=== PATIENT | female | born 1955 | race Caucasian/White ===

== ENCOUNTER → 2018-05-02 12:29 | Outpatient (REF) | payer OTHER, SELFPAY ==
[2018-05-02 19:31] LABS: ALT 37 U/L (12-78); AST 26 U/L (15-37); Albumin 3.8 g/dL (3.4-5.0); Alkaline Phosphatase 84 U/L (46-116); BUN 15 mg/dL (7-18); Bilirubin, Total 0.2 mg/dL (0.2-1.0); CREATININE 0.87 mg/dL (0.55-1.02); Calcium 8.6 mg/dL (8.5-10.1); Chloride 106 mmol/L (98-107); Cholesterol 193 mg/dL (50-200); Glucose 125 mg/dL (70-100); HDL Cholesterol 48 mg/dL (40-60); LDL CHOLESTEROL 131 mg/dL (<100); Potassium 4.3 mmol/L (3.5-5.1); Sodium 141 mmol/L (136-145); Total Protein 6.8 g/dL (6.4-8.2); Triglyceride 94 mg/dL (30-150)
== END ==
LOC: NCHCN 12:29
PROVIDERS: PCP Nurse Practitioner; Visit Provider Nurse Practitioner
DX: E78.5 Hyperlipidemia, unspecified (principal); E66.9 Obesity, unspecified
CPT/HCPCS: 80053; 80061; 83721

== ENCOUNTER 2018-08-31 08:31 | Emergency (ER) | payer OTHER, SELFPAY ==
[2018-08-31 08:41] VITALS: BP 149/74; PULSE 95; RESP 16; TEMP 37; O2SAT 94
--- NOTE | 2018-08-31 08:55 | W.ED.GENAD ---
Discharge Plan Disposition Patient Disposition: HOME Condition: Improving Discharge Details Chief Complaint: RashLesion Clinical Impression: Cellulitis of finger of left hand Primary Care Provider: Chikis Padron ED Provider: Jonathan Martin Home Meds and New Rx's Prescriptions: New cephalexin 500 mg capsule 500 mg PO TID 7 Days Qty: 21 RF: 0 Continued multivitamin [Daily Value] 1 EACH tablet 1 ea PO DAILY RF: 0 aspirin [Aspirin Low-Strength] 81 MG tablet,chewable 81 mg PO DAILY RF: 0 omeprazole 20 MG capsule,delayed release(DR/EC) 20 mg PO DAILY@0730 PRNQty: 30 RF: 0 ascorbic acid (vitamin C) [Vitamin C] 500 MG tablet 500 mg PO DAILY RF: 0 cholecalciferol (vitamin D3) [Vitamin D3] 2,000 UNIT capsule 2,000 unit PO PRN RF: 0 vitamin E (dl, acetate) 400 UNIT capsule 400 unit PO DAILY RF: 0 vitamin B complex 1 EACH tablet 1 tab PO QAM RF: 0 metoprolol tartrate 25 mg Tablet 25 mg PO DAILY RF: 0 Discharge Instructions Instructions: Cellulitis (ED) Additional Instructions: Continue your regular medications. Please take Keflex as prescribed for 1 week. Follow-up in clinic if not improving in 5 days time. Elevate hand above level of the heart to reduce pain and swelling. May continue Tylenol and ibuprofen as needed. May use warm soaks to speed the healing as well Medical Decision Making 62-year-old female with left ring finger infection and swelling due to constriction of her friendship ring. The ring was removed. The area does not show evidence of fluctuance and I do not feel incision is and drainage is indicated. I will place her on a course of Keflex. She will continue to raise the hand to decrease the swelling, may use warm soaks at home, [id number] medicines as needed. She will return for worsening, otherwise follow-up with primary care. She has plans to pursue increased exercise and weight loss. HPI General Mode of arrival: ambulatory. Date/Time Provider Initiated Documentation: 08/31/18 08:43. Limitations to Documentation: no limitations. Information obtained by: patient. History of Present Illness 62 year old F presents to the emergency department with the chief complaint of Left ring finger swelling and bruising dorsal wound over 3 days time. , described as moderate, Quality is described as aching, and is localized to the left and upper extremity. Patient reports no radiation. Patient started experiencing this day(s) and it has been constant. No relieving factors improve symptom(s), No exacerbating factors reported . Patient notes rash. Related Data Home Medications Medication Instructions Recorded Confirmed ascorbic acid (vitamin C) [Vitamin 500 mg PO DAILY 09/16/13 08/31/18 C] cholecalciferol (vitamin D3) 2,000 unit PO PRN 09/16/13 08/31/18 [Vitamin D3] vitamin E (dl, acetate) 400 unit PO DAILY 09/16/13 08/31/18 vitamin B complex 1 tab PO QAM 12/05/14 08/31/18 multivitamin [Daily Value] 1 ea PO DAILY 09/15/15 08/31/18 aspirin [Aspirin Low-Strength] 81 mg PO DAILY tab-cap 10/06/15 08/31/18 omeprazole 20 mg PO DAILY@0730 PRN #30 tab 10/11/16 08/31/18 cephalexin 500 mg PO TID 7 Days #21 cap 08/31/18 metoprolol tartrate 25 mg PO DAILY 08/31/18 08/31/18 Previous Rx's Medication Instructions Recorded cephalexin 500 mg PO TID 7 Days #21 cap 08/31/18 Allergies Allergy/AdvReac Type Severity Reaction Status Date / Time Latex, Natural Rubber AdvReac Intermediate flu-like Unverified 08/31/18 08:44 symptoms General Stated Complaint: RashLesion KENDALL: 4 Review of Systems Review of Systems 6 systems reviewed and otherwise neg [facility] Medical History Back injury Surgical History Cholecystectomy Tubal Ligation, Laparoscopic Family History Mother Heart murmur Myocardial infarction Father Prostate cancer Maternal Aunt Breast cancer Maternal Cousin Breast cancer Sister Heart murmur Social History Smoking/Tobacco Use Status: Former Tobacco Use Exam Narrative Exam Narrative: GEN: awake, alert, oriented 3. Pleasant, well groomed, interactive. HEAD: Normocephalic, atraumatic ENT: Mucous membranes moist, oropharynx unremarkable, External ear exam unremarkable EYES: PERRL, EOMI NECK: Full ROM, no MARIZOL, no menigismus CHEST/RESP: Nontender, clear to auscultation bilateral, no wheeze/rhonchi/rales CARDIOVASCULAR: RRR, no murmur, rub corina. 2+ Rad pulse bilateral EXT: Full ROM, left ring finger is edematous with a scheduled band proximal in place with constriction. Overlying the middle phalanx on the dorsal aspect there is a one by one area of mild erythema with tenderness. No fluctuance. Capillary refill less than 2 seconds Neuro: Grossly normal neurologic exam, conversant, interactive. Psych: Speech fluent, thoughts congruent, affect normal Course Vital Signs Temperature 37 C 08/31/18 08:41 Pulse 95 H 08/31/18 08:41 Respiratory Rate 16 08/31/18 08:41 Blood Pressure 149/74 H 08/31/18 08:41 Pulse Oximetry 94 L 08/31/18 08:41 Temperature 37 C 08/31/18 08:41 Temperature Source Skin 08/31/18 08:41 Pulse 95 H 08/31/18 08:41 Respiratory Rate 16 08/31/18 08:41 Respiratory Effort Non-Labored 08/31/18 08:41 Blood Pressure 149/74 H 08/31/18 08:41 Blood Pressure Position Sitting 08/31/18 08:41 Pulse Oximetry 94 L 08/31/18 08:41 Oxygen Delivery Method Room Air 08/31/18 08:41 Oxygen Flow Rate 0 08/31/18 08:41 Pain Level 9 08/31/18 08:41
--- NOTE | 2018-08-31 08:58 | ED.GENADUL_ITS ---
Discharge Plan Disposition Patient Disposition: HOME Condition: Improving Discharge Details Chief Complaint: RashLesion Clinical Impression: Cellulitis of finger of left hand Primary Care Provider: Chikis Padron ED Provider: Jonathan Martin Home Meds and New Rx's Prescriptions: New cephalexin 500 mg capsule 500 mg PO TID 7 Days Qty: 21 RF: 0 Continued multivitamin [Daily Value] 1 EACH tablet 1 ea PO DAILY RF: 0 aspirin [Aspirin Low-Strength] 81 MG tablet,chewable 81 mg PO DAILY RF: 0 omeprazole 20 MG capsule,delayed release(DR/EC) 20 mg PO DAILY@0730 PRNQty: 30 RF: 0 ascorbic acid (vitamin C) [Vitamin C] 500 MG tablet 500 mg PO DAILY RF: 0 cholecalciferol (vitamin D3) [Vitamin D3] 2,000 UNIT capsule 2,000 unit PO PRN RF: 0 vitamin E (dl, acetate) 400 UNIT capsule 400 unit PO DAILY RF: 0 vitamin B complex 1 EACH tablet 1 tab PO QAM RF: 0 metoprolol tartrate 25 mg Tablet 25 mg PO DAILY RF: 0 Discharge Instructions Instructions: Cellulitis (ED) Additional Instructions: Continue your regular medications. Please take Keflex as prescribed for 1 week. Follow-up in clinic if not improving in 5 days time. Elevate hand above level of the heart to reduce pain and swelling. May continue Tylenol and ibuprofen as needed. May use warm soaks to speed the healing as well Medical Decision Making 62-year-old female with left ring finger infection and swelling due to constri ction of her friendship ring. The ring was removed. The area does not show evidence of fluctuance and I do not feel incision is and drainage is indicated. I will place her on a course of Keflex. She will continue to raise the hand to decrease the swelling, may use warm soaks at home, [id number] medicines as needed. She will return for worsening, otherwise follow-up with primary care. She has plans to pursue increased exercise and weight loss. HPI General Mode of arrival: ambulatory . Date/Time Provider Initiated Documentation: 08/31/18 08:43 . Limitations to Documentation: no limitations . Information obtained by: patient . History of Present Illness 62 year old F presents to the emergency department with the chief complaint of Left ring finger swelling and bruising dorsal wound over 3 days time. , described as moderate, Quality is described as aching, and is localized to the left and upper extremity. Patient reports no radiation. Patient started experiencing this day(s) and it has been constant. No relieving factors improve symptom(s), No exacerbating factors reported . Patient notes rash. Related Data Home Medications Medication Instructions Recorded Confirmed ascorbic acid (vitamin C) [Vitamin 500 mg PO DAILY 09/16/13 08/31/18 C] cholecalciferol (vitamin D3) 2,000 unit PO PRN 09/16/13 08/31/18 [Vitamin D3] vitamin E (dl, acetate) 400 unit PO DAILY 09/16/13 08/31/18 vitamin B complex 1 tab PO QAM 12/05/14 08/31/18 multivitamin [Daily Value] 1 ea PO DAILY 09/15/15 08/31/18 aspirin [Aspirin Low-Strength] 81 mg PO DAILY tab-cap 10/06/15 08/31/18 omeprazole 20 mg PO DAILY@0730 PRN #30 tab 10/11/16 08/31/18 cephalexin 500 mg PO TID 7 Days #21 cap 08/31/18 metoprolol tartrate 25 mg PO DAILY 08/31/18 08/31/18 Previous Rx's Medication Instructions Recorded cephalexin 500 mg PO TID 7 Days #21 cap 08/31/18 Allergies Allergy/AdvReac Type Severity Reaction Status Date / Time Latex, Natural Rubber AdvReac Intermediate flu-like Unverified 08/31/18 08:44 symptoms General Stated Complaint: RashLesion KENDALL: 4 Review of Systems Review of Systems 6 systems reviewed and otherwise neg [facility] Medical History Back injury Surgical History Cholecystectomy Tubal Ligation, Laparoscopic Family History Mother Heart murmur Myocardial infarction Father Prostate cancer Maternal Aunt Breast cancer Maternal Cousin Breast cancer Sister Heart murmur Social History Smoking/Tobacco Use Status: Former Tobacco Use Exam Narrative Exam Narrative: GEN: awake, alert, oriented 3. Pleasant, well groomed, interactive. HEAD: Normocephalic, atraumatic ENT: Mucous membranes moist, oropharynx unremarkable, External ear exam unremarkable EYES: PERRL, EOMI NECK: Full ROM, no MARIZOL, no menigismus CHEST/RESP: Nontender, clear to auscultation bilateral, no wheeze/rhonchi/rales CARDIOVASCULAR: RRR, no murmur, rub corina. 2+ Rad pulse bilateral EXT: Full ROM, left ring finger is edematous with a scheduled band proximal in place with constriction. Overlying the middle phalanx on the dorsal aspect there is a one by one area of mild erythema with tenderness. No fluctuance. Capillary refill less than 2 seconds Neuro: Grossly normal neurologic exam, conversant, interactive. Psych: Speech fluent, thoughts congruent, affect normal Course Vital Signs Temperature 37 C 08/31/18 08:41 Pulse 95 H 08/31/18 08:41 Respiratory Rate 16 08/31/18 08:41 Blood Pressure 149/74 H 08/31/18 08:41 Pulse Oximetry 94 L 08/31/18 08:41 Temperature 37 C 08/31/18 08:41 Temperature Source Skin 08/31/18 08:41 Pulse 95 H 08/31/18 08:41 Respiratory Rate 16 08/31/18 08:41 Respiratory Effort Non-Labored 08/31/18 08:41 Blood Pressure 149/74 H 08/31/18 08:41 Blood Pressure Position Sitting 08/31/18 08:41 Pulse Oximetry 94 L 08/31/18 08:41 Oxygen Delivery Method Room Air 08/31/18 08:41 Oxygen Flow Rate 0 08/31/18 08:41 Pain Level 9 08/31/18 08:41
--- NOTE | 2018-08-31 09:01 | NUR.NOTE ---
Ring removed with ring cutter. no adverse problems.Nursing Note:
[2018-08-31] MEDS: Cephalexin 500 MG CAP PO (09:09)
== END 2018-08-31 09:22 | disposition home or self-care (01) ==
PROVIDERS: Emergency Provider Emergency Medicine; PCP Nurse Practitioner
DX: L03.012 Cellulitis of left finger (principal)
CPT/HCPCS: 99283

== ENCOUNTER 2018-09-03 19:07 | Emergency (ER) | payer OTHER, SELFPAY ==
[2018-09-03 19:11] VITALS: BP 148/85; PULSE 110; RESP 18; TEMP 36.8; O2SAT 96
--- NOTE | 2018-09-03 20:10 | W.ED.GENAD ---
Discharge Plan Disposition Patient Disposition: HOME Condition: Stable Discharge Details Chief Complaint: Cellulitis Clinical Impression: Cellulitis of left ring finger Primary Care Provider: Chikis Padron ED Provider: Dwayne Evans Home Meds and New Rx's Prescriptions: New sulfamethoxazole-trimethoprim [Bactrim DS] 800-160 mg tablet 2 tab PO BID 5 Days Qty: 20 RF: 0 Continued multivitamin [Daily Value] 1 EACH tablet 1 ea PO DAILY RF: 0 aspirin [Aspirin Low-Strength] 81 MG tablet,chewable 81 mg PO DAILY RF: 0 omeprazole 20 MG capsule,delayed release(DR/EC) 20 mg PO DAILY@0730 PRNQty: 30 RF: 0 ascorbic acid (vitamin C) [Vitamin C] 500 MG tablet 500 mg PO DAILY RF: 0 cholecalciferol (vitamin D3) [Vitamin D3] 2,000 UNIT capsule 2,000 unit PO PRN RF: 0 vitamin E (dl, acetate) 400 UNIT capsule 400 unit PO DAILY RF: 0 vitamin B complex 1 EACH tablet 1 tab PO QAM RF: 0 metoprolol tartrate 25 mg Tablet 25 mg PO DAILY RF: 0 cephalexin 500 mg capsule 500 mg PO TID 7 Days Qty: 21 RF: 0 Discharge Instructions Instructions: Cellulitis (ED) Additional Instructions: soak the finger a few times a day have the finger reevaluated by your primary care provider in a week if you have severe worsening pain, fevers, or redness spreading up the hand return to the emergency department Medical Decision Making 62 yo female comes in with continued swelling and redness to left middle finger. She was seen on 08/31 and was placed on cephalexin and despite this has worsening swelling and drainage so came here. She has 2x3cm area of erythema over the posterior left ring finger primarily around the pip joint. She has full rom of the joint and no pain over flexor tendons so doubt flexor tenosynovitis . Suspect abscess, will anesthetize the finger and try and drain as there is drainage and fluctuance in the center of erythema I injected with 6cc of lidocaine 1%, 3cc on each side of the base of the left ring finger and then incsied with an 11 blade. NO significant purulence returned as it drained earlier. I opened it up with giuseppe clamps. I did have Dr. garcia evaluate it at bedside and he agrees with adding bactrim, soaking and f/u with pcp and return here if worsening Differential Diagnosis abscess, cellulitis, septic joint HPI General Mode of arrival: ambulatory. Date/Time Provider Initiated Documentation: 09/03/18 19:20. Limitations to Documentation: no limitations. Information obtained by: patient. History of Present Illness 62 year old F presents to the emergency department with the chief complaint of left ring finger redness/swelling, described as moderate, Quality is described as burning, and is localized to the left and upper extremity. Patient reports no radiation. Patient started experiencing this day(s) (4) and it has been constant. No relieving factors improve symptom(s), Related Data Home Medications Medication Instructions Recorded Confirmed ascorbic acid (vitamin C) [Vitamin 500 mg PO DAILY 09/16/13 09/03/18 C] cholecalciferol (vitamin D3) 2,000 unit PO PRN 09/16/13 09/03/18 [Vitamin D3] vitamin E (dl, acetate) 400 unit PO DAILY 09/16/13 09/03/18 vitamin B complex 1 tab PO QAM 12/05/14 09/03/18 multivitamin [Daily Value] 1 ea PO DAILY 09/15/15 09/03/18 aspirin [Aspirin Low-Strength] 81 mg PO DAILY tab-cap 10/06/15 09/03/18 omeprazole 20 mg PO DAILY@0730 PRN #30 tab 10/11/16 09/03/18 cephalexin 500 mg PO TID 7 Days #21 cap 08/31/18 09/03/18 metoprolol tartrate 25 mg PO DAILY 08/31/18 09/03/18 sulfamethoxazole-trimethoprim 2 tab PO BID 5 Days #20 tab 09/03/18 [Bactrim DS] Previous Rx's Medication Instructions Recorded cephalexin 500 mg PO TID 7 Days #21 cap 08/31/18 sulfamethoxazole-trimethoprim 2 tab PO BID 5 Days #20 tab 09/03/18 [Bactrim DS] Allergies Allergy/AdvReac Type Severity Reaction Status Date / Time Latex, Natural Rubber AdvReac Intermediate flu-like Unverified 08/31/18 08:44 symptoms General Stated Complaint: Cellulitis KENDALL: 3 Review of Systems Review of Systems All systems reviewed & are unremarkable except as noted in HPI and below Constitutional Denies weakness Cardiovascular Denies chest pain and Denies dyspnea Respiratory Denies dyspnea Gastrointestinal Denies vomiting Neurologic Denies weakness [facility] Medical History Back injury Surgical History Cholecystectomy Tubal Ligation, Laparoscopic Social History Smoking/Tobacco Use Status: Former Tobacco Use Exam Const General: no acute distress Orientation: alert HENMT Head: normal to inspection Ears: external ears normal General nose exam: external nose normal Mouth: moist mucous membranes Eyes General: appearance normal, both eyes and all related structures Neck Neck: normal visual inspection Resp Effort & Inspection: normal respiratory effort and able to speak in complete sentences Cardio Rate: regular rate Skin General skin exam: no rashes or lesions noted Neuro General: alert and oriented x3 Extrem General: full ROM and normal capillary refill Psych Mental Status: mental status grossly normal Course Vital Signs Temperature 36.8 C 09/03/18 19:11 Pulse 110 H 09/03/18 19:11 Respiratory Rate 18 09/03/18 19:11 Blood Pressure 148/85 H 09/03/18 19:11 Pulse Oximetry 96 09/03/18 19:11 Temperature 36.8 C 09/03/18 19:11 Temperature Source Skin 09/03/18 19:11 Pulse 110 H 09/03/18 19:11 Respiratory Rate 18 09/03/18 19:11 Respiratory Effort 09/03/18 19:16 Blood Pressure 148/85 H 09/03/18 19:11 Blood Pressure Position Sitting 09/03/18 19:11 Pulse Oximetry 96 09/03/18 19:11 Oxygen Delivery Method Room Air 09/03/18 19:11 Oxygen Flow Rate 0 09/03/18 19:11 Pain Level 10 09/03/18 19:11 Procedures Abscess I/D Site: Upper Extremity and Hand Side (if applicable): Left Local Anesthetic: Lidocaine 1% Amount of anesthesia used (mL): 6 Technique: Incised with #11 Blade Amount of fluid expressed (mL): 1 (blood with small amount of pus) Irrigation: Yes Packing used?: None
[2018-09-03] MEDS: Sulfameth/Trimeth DS TAB 2 TAB PO (20:28)
[2018-09-03 21:14] VITALS: BP 148/85; PULSE 110; RESP 18; TEMP 36.8; O2SAT 96
== END 2018-09-03 21:15 | disposition home or self-care (01) ==
PROVIDERS: Emergency Provider Emergency Medicine; PCP Nurse Practitioner
DX: L03.012 Cellulitis of left finger (principal)
CPT/HCPCS: 10060

== ENCOUNTER 2018-11-14 16:00 | Outpatient (CLI) | payer OTHER, SELFPAY ==
--- NOTE | 2018-11-14 15:30 | DI.RAD_ITS ---
SYMPTOMS/DIAGNOSIS: ACUTE UPPER RESPIRATORY INFECTION, COUGH, J06.9, R05 CHEST X-RAY, PA AND LATERAL: Comparison is 07/15/10. The heart is normal in size. The lungs are clear. The mediastinal structures and pleura appear intact. IMPRESSION: Normal chest.
== END 2018-11-14 16:20 ==
PROVIDERS: PCP Nurse Practitioner; Visit Provider Nurse Practitioner
DX: J06.9 Acute upper respiratory infection, unspecified (principal); R05 Cough
CPT/HCPCS: 71046

== ENCOUNTER 2018-12-15 07:21 | Outpatient (CLI) | payer OTHER, SELFPAY ==
[2018-12-15 10:18] LABS: Hemoglobin A1C 6.7 % (4.5-6.2)
[2018-12-15 12:25] LABS: ALT 44 U/L (12-78); AST 26 U/L (15-37); Albumin 3.6 g/dL (3.4-5.0); Alkaline Phosphatase 75 U/L (46-116); Anion Gap 11.3 mmol/L (3-11); BUN 20 mg/dL (7-18); Bilirubin, Total 0.3 mg/dL (0.2-1.0); CO2 26.7 mmol/L (21.0-32.0); CREATININE 0.73 mg/dL (0.55-1.02); Calcium 8.8 mg/dL (8.5-10.1); Chloride 104 mmol/L (98-107); Cholesterol 179 mg/dL (50-200); Glucose 101 mg/dL (70-100); HDL Cholesterol 40 mg/dL (40-60); LDL CHOLESTEROL 123 mg/dL (<100); Potassium 4.3 mmol/L (3.5-5.1); Sodium 142 mmol/L (136-145); Triglyceride 89 mg/dL (30-150)
== END 2018-12-15 07:41 ==
PROVIDERS: PCP Nurse Practitioner; Visit Provider Nurse Practitioner
DX: E78.5 Hyperlipidemia, unspecified (principal); R03.0 Elevated blood-pressure reading, without diagnosis of hypertension; R73.9 Hyperglycemia, unspecified
CPT/HCPCS: 36415; 80053; 80061; 83721; 83036

== ENCOUNTER 2020-07-13 01:56 | Outpatient (CLI) | payer OTHER, SELFPAY ==
[2020-07-13 07:56] LABS: Hemoglobin A1C 6.6 % (<5.7)
[2020-07-13 08:02] LABS: ALT 30 U/L (14-59); AST 21 U/L (15-37); Albumin 3.7 g/dL (3.4-5.0); Alkaline Phosphatase 70 U/L (46-116); Anion Gap 9.5 mmol/L (3-11); BUN 18 mg/dL (7-18); Bilirubin, Total 0.3 mg/dL (0.2-1.0); CO2 26.5 mmol/L (21.0-32.0); CREATININE 0.85 mg/dL (0.55-1.02); Calcium 8.9 mg/dL (8.5-10.1); Calculated LDL 111 mg/dL (<100); Chloride 105 mmol/L (98-107); Cholesterol 178 mg/dL (<200); Glucose 115 mg/dL (74-106); HDL Cholesterol 47 mg/dL (40-60); Potassium 4.1 mmol/L (3.5-5.1); Sodium 141 mmol/L (136-145); Total Protein 7.8 g/dL (6.4-8.2); Triglyceride 104 mg/dL (<150)
== END 2020-07-13 02:16 ==
PROVIDERS: PCP Nurse Practitioner; Visit Provider Nurse Practitioner
DX: E11.9 Type 2 diabetes mellitus without complications (principal)
CPT/HCPCS: 36415; 80053; 80061; 83036

== ENCOUNTER 2020-08-12 11:58 | Outpatient (CLI) | payer OTHER, SELFPAY ==
--- NOTE | 2020-08-12 18:45 | DI.RAD_ITS ---
EXAM: XR KNEE RT 3V AP,LAT,BLAS CLINICAL HISTORY: RT KNEE PAIN,[id number]. TECHNIQUE: 2D digital imaging was performed. COMPARISON: No exams were available for comparison FINDINGS: BONES: No acute fracture is present. No bony destructive lesion is seen. JOINTS: The knee is normally aligned. No joint effusion is seen. Mild periarticular spurring. SOFT TISSUE: Normal. IMPRESSION: Mild degenerative changes. DATA REPOSITORY: RADIATION DOSE DELIVERED:
== END 2020-08-12 12:18 ==
PROVIDERS: PCP Nurse Practitioner; Visit Provider Nurse Practitioner Family
DX: M17.11 Unilateral primary osteoarthritis, right knee (principal)
CPT/HCPCS: 73562

== ENCOUNTER 2020-09-24 07:49 | Emergency (ER) | payer OTHER, SELFPAY ==
[2020-09-24 07:56] VITALS: BP 173/87; PULSE 117; RESP 18; TEMP 36.6; O2SAT 96
--- NOTE | 2020-09-24 08:18 | W.ED.GENAD ---
Discharge Plan Disposition Patient Disposition: HOME Condition: Good Discharge Details Clinical Impression: Encounter for medical assessment, Foreign body sensation in ear canal Primary Care Provider: Chikis Padron ED Provider: Mihai Gautam Home Meds and New Rx's Prescriptions: Continued multivitamin [Daily Value] 1 EACH tablet 1 ea PO DAILY RF: 0 aspirin [Aspirin Low-Strength] 81 MG tablet,chewable 81 mg PO DAILY RF: 0 omeprazole 20 MG capsule,delayed release(DR/EC) 20 mg PO DAILY@0730 PRNQty: 30 RF: 0 ascorbic acid (vitamin C) [Vitamin C] 500 MG tablet 500 mg PO DAILY RF: 0 cholecalciferol (vitamin D3) [Vitamin D3] 2,000 UNIT capsule 2,000 unit PO PRN RF: 0 vitamin E (dl, acetate) 400 UNIT capsule 400 unit PO DAILY RF: 0 vitamin B complex 1 EACH tablet 1 tab PO QAM RF: 0 metoprolol tartrate 25 mg Tablet 25 mg PO DAILY RF: 0 Discharge Instructions Additional Instructions: At this time on the x-ray and on exam there is no evidence of foreign body. The initial sensation have been secondary to some of the wax that was still present in the canal. But at this time there does not appear to be any evidence of retained Bluetooth device. If you notice any worsening of your symptoms, or any new symptoms such as vomiting, diarrhea, fever, chills, shortness of breath, chest pain, numbness, weakness, or fainting , please return immediately to the emergency department for reevaluation. Please follow up with your primary care provider as soon as possible for reassessment and reevaluation. As always, it was a pleasure participating in your medical care today. Referrals: Chikis Padron [Primary Care Provider] - Medical Decision Making 64-year-old female who presents today for foreign body audio in the left ear. Patient states that she was wearing her Bluetooth, and when she took it out she still hear echoing in speech in her left ear even though the Bluetooth without. She denies any pain, she denies any headache, visual changes, changes in sense or smells, any numbness, tingling, or weakness. No history of brain cancer. No evidence of trauma. She is notably concerned about this current symptoms. Symptoms began just a few moments ago while she was walking into work here. No other complaints at this time. No other modifying factors. Exam demonstrates no evidence of foreign body in the left ear, no tympanic membrane perforation, no other abnormality. Patient is insistent that she was able to get this down, and is requesting x-ray to rule out foreign body. Will get x-ray at her request which is reasonable given her level of concern. We will washout the ear as well, to remove any excess cerumen. No other complaints at this time. 9 AM X-ray shows no evidence of radiopaque foreign body, ear was irrigated, all cerumen was removed, repeat evaluation continues to demonstrate no signs of foreign body thankfully. Patient feels well, symptoms have resolved. Unknown cause for her initial auditory symptomatology, symptoms appearing consistent with tumor, mass or other concerning etiology. Will discharge home, recommend close follow-up with PCP. Discussed red flags which to return. I have extensively reviewed the treatment plan and discharge instructions with the patient. I have addressed all patient concerns at this time. The patient was made aware of what symptoms to monitor for that would warrant a return to the emergency department. Discussed the plan with the patient, they demonstrate verbal understanding and agreement with our assessment and plan at this time. Radiology report: [No radiopaque foreign bodies are identified. HPI General Date/Time Provider Initiated Documentation: 09/24/20 08:07. HPI Narrative: 64-year-old female who presents today for foreign body audio in the left ear. Patient states that she was wearing her Bluetooth, and when she took it out she still hear echoing in speech in her left ear even though the Bluetooth without. She denies any pain, she denies any headache, visual changes, changes in sense or smells, any numbness, tingling, or weakness. No history of brain cancer. No evidence of trauma. She is notably concerned about this current symptoms. Symptoms began just a few moments ago while she was walking into work here. No other complaints at this time. No other modifying factors. Related Data Home Medications Medication Instructions Recorded Confirmed ascorbic acid (vitamin C) [Vitamin 500 mg PO DAILY 09/16/13 09/16/20 C] cholecalciferol (vitamin D3) 2,000 unit PO PRN 09/16/13 09/16/20 [Vitamin D3] vitamin E (dl, acetate) 400 unit PO DAILY 09/16/13 09/16/20 vitamin B complex 1 tab PO QAM 12/05/14 09/16/20 multivitamin [Daily Value] 1 ea PO DAILY 09/15/15 09/16/20 aspirin [Aspirin Low-Strength] 81 mg PO DAILY tab-cap 10/06/15 09/16/20 omeprazole 20 mg PO DAILY@0730 PRN #30 tab 10/11/16 09/16/20 metoprolol tartrate 25 mg PO DAILY 08/31/18 09/16/20 Allergies Allergy/AdvReac Type Severity Reaction Status Date / Time Latex, Natural Rubber AdvReac Intermediate flu-like Unverified 09/16/20 09:59 symptoms General Stated Complaint: EarProblem KENDALL: 4 Review of Systems All systems reviewed & are unremarkable except as noted in HPI and below PFSH Medical History (Updated 09/24/20 @ 08:22 by Mihai Gautam DO) Back injury Surgical History Cholecystectomy Tubal Ligation, Laparoscopic Family History Mother Heart murmur Myocardial infarction 67 Father Prostate cancer Maternal Aunt Breast cancer Maternal Cousin Breast cancer Sister Heart murmur Social History Smoking/Tobacco Use Status: Former Tobacco Use Smoking risk assessment performed?: Yes Alcohol Intake: current Alcohol Intake frequency: holidays/special occasions only Drug use: Never Substance use type: does not use Do you feel safe in your relationship?: Yes Exam Narrative Exam Narrative: 1.Const: Well-nourished, Well-developed, appearing stated age 2.Eyes: PERRL, no conjunctival injection, and symmetrical lids. 3.ENT: Atraumatic external nose and ears. Moist MM. Neck: Symmetric, trachea midline, No thyromegaly. Left ear demonstrates a small amount of cerumen, no evidence of tympanic membrane perforation, no evidence of foreign body. No tenderness. 4.CVS: +S1/S2, No murmurs or gallops. Peripheral pulses 2+ and equal in all extremities. Brisk capillary refill in all extremities. 5.RESP: Unlabored respiratory effort. Clear to auscultation bilaterally. No wheezes rales or rhonchi 6.GI: Soft, Nontender/Nondistended, No hepatosplenomegaly. No guarding or rebound. 7.MSK: Normocephalic/Atraumatic, Extremities w/o deformity or ttp No cyanosis or clubbing, Normal movement of all extremities 8.Skin: Warm, Dry. No rashes or lesions. 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 Sensation grossly intact, no focal neurologic deficits. 10.Psych: (AAO) x3. Appropriate mood and affect Course Vital Signs Vital signs: Vital Signs Temperature 36.6 C 09/24/20 07:56 Pulse 117 H 09/24/20 07:56 Respiratory Rate 18 09/24/20 07:56 Blood Pressure 173/87 H 09/24/20 07:56 Pulse Oximetry 96 09/24/20 07:56 Temperature 36.6 C 09/24/20 07:56 Temperature Source Temporal Artery Scan 09/24/20 07:56 Pulse 117 H 09/24/20 07:56 Respiratory Rate 18 09/24/20 07:56 Respiratory Effort Non-Labored 09/24/20 08:09 Blood Pressure 173/87 H 09/24/20 07:56 Blood Pressure Position Standing 09/24/20 07:56 Pulse Oximetry 96 09/24/20 07:56 Oxygen Delivery Method Room Air 09/24/20 07:56 Oxygen Flow Rate 0 09/24/20 07:56 Pain Level 0 09/24/20 08:09
--- NOTE | 2020-09-24 08:45 | DI.RAD_ITS ---
EXAM: XR SKULL COMPLETE CLINICAL HISTORY: patient concern for L ear blutooth FB, exam benign. TECHNIQUE: 2D digital imaging was performed. COMPARISON: No exams were available for comparison FINDINGS: BONES: No acute fracture is present. No bony destructive lesion is seen. Sinuses: Unremarkable. SOFT TISSUE: No radiopaque foreign body is identified. Patient has a nose ring. IMPRESSION: No radiopaque foreign bodies are identified. DATA REPOSITORY: RADIATION DOSE DELIVERED:
[2020-09-24 08:54] VITALS: BP 134/85; PULSE 97; RESP 16; TEMP 36.6; O2SAT 97
== END 2020-09-24 08:58 | disposition home or self-care (01) ==
PROVIDERS: Emergency Provider Student in an Organized Health Care Education/Training Program; PCP Nurse Practitioner
DX: T16.2XXA Foreign body in left ear, initial encounter (principal); Z71.1 Person with feared health complaint in whom no diagnosis is made; H61.22 Impacted cerumen, left ear
CPT/HCPCS: 69209; 99283; 70260

== ENCOUNTER 2020-10-20 13:37 | Outpatient (REF) | payer OTHER, SELFPAY ==
[2020-10-21 15:49] LABS: COMMENT (LAB VIEW ONLY) 250.71 mg/dL
[2020-10-21 15:56] LABS: Calculated LDL 127 mg/dL (<100); Cholesterol 189 mg/dL (<200); HDL Cholesterol 47 mg/dL (40-60); Triglyceride 76 mg/dL (<150)
[2020-10-22 09:56] LABS: Hepatitis C Ab w Rflx HCV PCR Negative (Negative)
== END 2020-10-20 13:38 | disposition home or self-care (01) ==
LOC: NCHCN 13:37
PROVIDERS: PCP Nurse Practitioner; Visit Provider Nurse Practitioner
DX: E11.9 Type 2 diabetes mellitus without complications (principal); Z11.59 Encounter for screening for other viral diseases
CPT/HCPCS: 80061; 86803; 82043; 82570

== ENCOUNTER 2020-10-29 04:00 | Outpatient (CLI) | payer OTHER, SELFPAY ==
--- NOTE | 2020-10-29 14:50 | DI.MRI_ITS ---
EXAM: MR LOWER JOINT RT WO CLINICAL HISTORY: RT KNEE PAIN, INTERNAL DERANGEMENT, M23.91. TECHNIQUE: Multiplanar multisequence MRI was performed. COMPARISON: CR XR KNEE RT 3V AP,LAT,BLAS from 08/12/2020 FINDINGS: There is mild edema in the anterior subcutaneous fat. There is a small to moderate-sized joint effu gil. A 2.4 centimeter cyst is seen posterior to the femoral metaphysis. It appears to communicate with the joint space. The marrow signal appears normal. There is a small amount of fluid around the anterior cruciate ligament but no discrete tear. Posterior cruciate ligament, lateral collateral li gament complex and extensor mechanism appear intact. There is edema around the medial collateral lig ament but no visible focal tear. The lateral meniscus shows mild degenerative changes. There is a s mall defect of the at the apex of the posterior horn of the medial meniscus. There is some cartilage thinning and irregularity over the medial femoral condyle. A small focal defect is seen in the apex of the patellar cartilage which appears frayed. IMPRESSION: Small tear at the apex of the posterior horn of the medial meniscus. Medial collateral ligament sprain and question of an ACL sprain. Small joint effusion and posterior synovial cyst or ganglia. Cartilage fraying at the patellar apex and cartilage irregularity of the medial femoral condyle. DATA REPOSITORY:
== END 2020-10-29 04:20 ==
PROVIDERS: PCP Nurse Practitioner; Visit Provider Student in an Organized Health Care Education/Training Program
DX: M25.561 Pain in right knee (principal); M25.461 Effusion, right knee; M23.91 Unspecified internal derangement of right knee; S83.241A Other tear of medial meniscus, current injury, right knee, initial encounter; S83.411A Sprain of medial collateral ligament of right knee, initial encounter; R60.0 Localized edema
CPT/HCPCS: 73721

== ENCOUNTER 2020-11-22 03:27 | Outpatient (CLI) | payer OTHER, SELFPAY ==
[2020-11-22 10:18] LABS: Source Nasal/Nares
[2020-11-22 14:34] LABS: COVID-19 PCR Negative (Negative)
== END 2020-11-22 03:28 | disposition home or self-care (01) ==
LOC: LBO 03:28
PROVIDERS: PCP Nurse Practitioner; Visit Provider Student in an Organized Health Care Education/Training Program
DX: Z20.822 Contact with and (suspected) exposure to COVID-19 (principal); Z01.818 Encounter for other preprocedural examination
CPT/HCPCS: 87635

== ENCOUNTER 2020-11-24 11:33 | Day surgery (SDC) | payer OTHER, SELFPAY ==
[2020-11-24] VITALS (7 sets, daily range): BP systolic 106–145; BP diastolic 55–74; PULSE 74–102; RESP 10–22; TEMP 36.1–36.3; O2SAT 93–99
[2020-11-24] MEDS: Lactated Ringers 1,000 ML 80 ML IV (12:10)
--- NOTE | 2020-11-24 12:39 | W.PM.DSUDISC ---
Discharge Plan Disposition Patient Disposition: HOME Condition: Good Discharge Details Reason For Visit: Right Knee Medial Meniscus Tear Attending Provider: Gopal Cook Primary Care Provider: Chikis Padron Home Meds and New Rx's Prescriptions: New hydrocodone-acetaminophen 5-325 mg tablet 1 tab PO Q6H PRN (Reason: pain) Qty: 12 RF: 0 acetaminophen 500 mg tablet 500 mg PO Q6H PRN PRN (Reason: pain) Qty: 40 RF: 3 ibuprofen 600 mg tablet 600 mg PO TID PRN (Reason: pain) Qty: 90 RF: 3 Continued multivitamin [Daily Value] 1 EACH tablet 1 ea PO DAILY RF: 0 omeprazole 20 MG capsule,delayed release(DR/EC) 20 mg PO DAILY PRN PRNQty: 30 RF: 0 ascorbic acid (vitamin C) [Vitamin C] 500 MG tablet 500 mg PO DAILY RF: 0 cholecalciferol (vitamin D3) [Vitamin D3] 2,000 UNIT capsule 2,000 unit PO PRN RF: 0 vitamin E (dl, acetate) 400 UNIT capsule 400 unit PO DAILY RF: 0 vitamin B complex 1 EACH tablet 1 tab PO QAM RF: 0 Discontinued acetaminophen [Tylenol Extra Strength] 500 mg Capsule 1,000 mg PO BID RF: 0 Discharge Instructions Stand Alone Forms: [facility] Referrals: Gopal Cook MD [ [facility] STAFF PHYSICIAN] - Equipment/Supplies: Partial Weight Bearing Crutches Activity:: Elevate Remove Dressings/Wound Care:: 72 hours Shower/Bathe:: 72 hours Diet:: As Tolerated Discharge Orders Discharge Orders: Discharge Order (Routine); Ordered 11/24/20 Ordered By: Gopal Cook
[2020-11-24] MEDS: ceFAZolin 2 GM/50 ML BAG IVPB (12:48)
[2020-11-24] MEDS: Bupivacaine 0.5% Pres-Free 30 ML VIAL (13:13)
[2020-11-24] MEDS: HYDROmorphone 2 MG/ML VIAL IVP (14:04)
--- NOTE | 2020-11-24 15:34 | ROE_ITS ---
Date of service: 11/24/20 Time of Service: 13:34 Operative Note Operative Note DATE OF PROCEDURE: 11/24/20 PRE-OP DIAGNOSIS: Medial meniscal tear, right knee POST-OP DIAGNOSIS: same Severe, grade 4, chondromalacia of the right medial femur PROCEDURE: Right knee arthroscopic partial medial meniscectomy with medial chondroplasty of loose chondral flap from the medial femur SURGEON: Gopal Cook ANESTHESIA TYPE: General LMA/ETT Refer to Anesthesia Record ESTIMATED BLOOD LOSS: 0 PATHOLOGY: none sent TOURNIQUET TIME: 0 COMPLICATIONS: None Patient was transported to: PACU Patient's condition: stable Indications: I have seen Sari in clinic for symptoms of a meniscus tear. This was confirmed based on MRI and exam findings. Nonoperative measures were exhausted but disability and pain persisted. I discussed knee arthroscopy with meniscal intervention with the patient. I reviewed the risks of the procedure to include, but not limited to, bleeding, infection, pain, stiffness, damage to nerves or vessels, recurrence, blood clot. Despite these risks, the patient elected to proceed. Findings: A diagnostic arthroscopy was performed with the following findings: Suprapatellar Pouch: Moderate inflammatory changes, no loose bodies Medial Compartment: Complex medial meniscal tear, intact meniscal root, a large swath of exposed bone, grade IV chondromalacia, the medial femur and grade III chondromalacia of the central tibia, no loose bodies Notch: ACL and PCL were intact Lateral Compartment: Mild fraying at the posterior root but no daniel tear, intact meniscal root, no significant chondromalacia or signs of arthritis, no loose bodies Patellofemoral Compartment: Grade II chondromalacia of the patella, no apparent patellar maltracking Procedure Description: Sari was greeted in the preoperative holding area where the correct side was identified and marked. The consent was reviewed with the patient and signed. The history and physical was updated. All questions were answered. She was taken back to the operating room. The patient was placed into the supine position on the operating room table. A nonsterile tourniquet was placed high onto the leg but not used. All bony prominences were well padded. Prophylactic antibiotics in the form of cefazolin were administered. The right leg was then prepped with Chloraprep and draped in a standard fashion with stockinette and extremity drape. A timeout to confirm correct identity, side and site, procedure, allergies, anesthesia, and medical concerns was performed. The leg was placed into a pneumatic leg headley, [id number]. A standard lateral portal was made at the lateral border of the patella tendon in line with the inferior pole of the patella, soft spot. The skin and deep tissue was incised sharply and the blunt trochar was inserted atraumatically. A diagnostic arthroscopy was performed and the findings are listed above. The suprapatellar pouch had moderate inflammatory changes. The patellofemoral articulation showed grade II chondromalacia as well as good tracking. The lateral gutter had no loose bodies and the medial gutter had no loose bodies but a very small peripheral osteophyte. The knee was brought into some valgus stress in extension to open the medial compartment. A medial portal was made, localized by a spinal needle. The portal was created with an #11 blade through skin and capsule under direct visualization avoiding any meniscal injury. A probe was then inserted into the medial compartment. The medial compartment was fully inspected. The chondral surface of the tibia showed grade II chondromalacia in the central portion and the surface of the femur showed a large swath of grade IV chondromalacia with exposed bone centrally along the distal aspect of the medial femur. This measured at least 8 mm in width and 2 cm in length although its shape was somewhat irregular. The medial meniscus had a complex meniscal tear with a radial and horizontal component at the level of the posterior horn. The radial component did not extend all the way to the periphery and there still were some very small attached fibers around the periphery of the meniscus and meniscus tissue surrounding this tear was well attached to the capsule. After evaluation, the meniscus was debrided down to a stable base using a series of biters and arthroscopic melinda. It was probed afterwards to confirm that the tear had been removed and the meniscus was stable. Over the distal end of the femur there was a loose cartilage flap which was easily displaced into the medial compartment. This loose cartilage flap was debrided down to the flap base, leaving any intact fibers. The notch was then inspected which showed an intact ACL and an intact PCL. The leg was then brought into a figure of 4 position. The lateral compartment was fully inspected with the arthroscope and a probe. The chondral surface of the lateral femur showed no significant chondromalacia. The chondral surface of the lateral tibia showed no significant chondromalacia. The lateral meniscus had some fraying over the central aspect of the posterior root but no daniel tearing. The arthroscope was brought back into the suprapatellar pouch and the leg was in full extension. The knee was thoroughly irrigated with the arthroscopic fluid on high flow and pressure. Inflow was stopped and excess fluid was removed. T he wounds were closed with 4-0 Nylon. They were dressed with Xeroform, 4x4 gauze, ABD pad, Kerlix and an PROMISE wrap. A cryo-cuff was applied. The patient tolerated the procedure well and was returned to the [facility] Surgery area in a stable condition suffering no known complication.
== END 2020-11-24 15:54 | disposition home or self-care (01) ==
PROVIDERS: PCP Nurse Practitioner; Visit Provider Student in an Organized Health Care Education/Training Program
PROC: (CPT 29870; principal; 2020-11-24 12:30)
DX: S83.231A Complex tear of medial meniscus, current injury, right knee, initial encounter (principal); X58.XXXA Exposure to other specified factors, initial encounter; Y99.0 Civilian activity done for income or pay; M22.41 Chondromalacia patellae, right knee; G47.33 Obstructive sleep apnea (adult) (pediatric)
CPT/HCPCS: 29881; J0131; J0690; J1100; J1885; J2001; J2250; J2405; J2704

== ENCOUNTER 2021-07-17 10:49 | Outpatient (CLI) | payer OTHER, SELFPAY ==
--- NOTE | 2021-07-17 | DI.RAD_ITS ---
Exam(s) XR SHOULDER RT COMPLETE 2+V EXAM: XR SHOULDER RT COMPLETE 2+V CLINICAL HISTORY: RT SHOULDER PAIN, M25.511. TECHNIQUE: 2D digital imaging was performed of the right shoulder. Five images were obtained. AP, Grashey, Y-view and axillary views were obtained. COMPARISON: No exams were available for comparison FINDINGS: BONES: No acute fracture is present. No bony destructive lesion is seen. JOINTS: No dislocation present. Degenerative changes are seen at the acromioclavicular joint. SOFT TISSUE: Normal. IMPRESSION: Degenerative changes of the right AC joint. DATA REPOSITORY: RADIATION DOSE DELIVERED:
== END 2021-07-17 11:09 ==
PROVIDERS: PCP Nurse Practitioner; Visit Provider Nurse Practitioner
DX: M25.511 Pain in right shoulder (principal); M19.011 Primary osteoarthritis, right shoulder
CPT/HCPCS: 73030

== ENCOUNTER 2021-10-19 16:39 | Outpatient (CLI) | payer OTHER, SELFPAY ==
--- NOTE | 2021-10-19 | DI.RAD_ITS ---
Exam(s) XR CHEST 2V PA LATERAL EXAM: XR CHEST 2V PA LATERAL CLINICAL HISTORY: HX OF TOBACCO USE, Z87.891, SHORTNESS OF BREATH AT BASELINE TECHNIQUE: 2D digital imaging was performed of the chest. Two images were obtained. PA and lateral views were obtained. COMPARISON: CR XR CHEST 2V PA LATERAL from 11/14/2018 FINDINGS: MEDIASTINUM: Normal. HEART: Normal. PULMONARY VASCULATURE: Normal. LUNGS: Clear. PLEURAL SPACE: No pleural effusion or pneumothorax. BONE:Within normal limits for the patient's age. OTHER FINDINGS:Normal. IMPRESSION: No acute pulmonary findings. DATA REPOSITORY: RADIATION DOSE DELIVERED:
--- NOTE | 2021-10-19 22:55 | DI.VRAD_ITS ---
PROCEDURE INFORMATION: Exam: XR Chest Exam date and time: 10/19/2021 3:13 PM Age: 66 years old Clinical indication: Shortness of breath TECHNIQUE: Imaging protocol: XR of the chest. Views: 2 views. COMPARISON: CR XR CHEST 2V PA LATERAL 11/14/2018 3:15 PM FINDINGS: Lungs: No significant consolidation. Pleural spaces: No pleural effusion. No pneumothorax. Heart/Mediastinum: No cardiomegaly. Bones/joints: Unremarkable. IMPRESSION: 1. No significant consolidation. 2. Early interstitial pulmonary edema is not entirely excluded. Correlate with clinical findings. Dictated and Authenticated by: Marzena Schroeder MD. Ordering:SOUTH VIDALES MD
== END 2021-10-19 16:59 ==
PROVIDERS: PCP Nurse Practitioner; Visit Provider Nurse Practitioner Family
DX: Z87.891 Personal history of nicotine dependence (principal); R91.8 Other nonspecific abnormal finding of lung field
CPT/HCPCS: 71046

== ENCOUNTER 2021-10-30 15:30 | Outpatient (REF) | payer OTHER, SELFPAY ==
[2021-10-30 15:17] LABS: HCT 38.2 % (36.0-46.0); HGB 12.4 g/dL (11.2-15.7); MCHC 32.5 % (32.0-36.0); MCV 89.5 fL (80-95); MPV 11.4 fL (8.0-11.0); Platelet Count 265 10^3/uL (130-400); RBC 4.27 10^6/uL (3.93-5.22); RDW 14.6 % (11.7-14.6); RDW-SD 47.4 fL; WBC 12.86 10^3/uL (4.4-10.8)
[2021-10-30 16:06] LABS: ALT 43 U/L (14-59); AST 25 U/L (15-37); Albumin 3.6 g/dL (3.4-5.0); Alkaline Phosphatase 84 U/L (46-116); Anion Gap 7.7 mmol/L (3-11); BUN 24 mg/dL (7-18); Bilirubin, Total 0.1 mg/dL (0.2-1.0); CO2 27.3 mmol/L (21.0-32.0); CREATININE 1.2 mg/dL (0.55-1.02); Calcium 9.1 mg/dL (8.5-10.1); Calculated LDL 119 mg/dL (<100); Chloride 105 mmol/L (98-107); Cholesterol 202 mg/dL (<200); Estimated GFR 45.09 (mL/min/1.73m2); Glucose 144 mg/dL (74-106); HDL Cholesterol 41 mg/dL (40-60); Magnesium 1.8 mg/dL (1.8-2.4); Potassium 4.6 mmol/L (3.5-5.1); Sodium 140 mmol/L (136-145); Total Protein 6.9 g/dL (6.4-8.2); Triglyceride 210 mg/dL (<150)
[2021-10-30 16:46] LABS: Hemoglobin A1C 6.8 % (<5.7)
== END 2021-10-30 15:31 | disposition home or self-care (01) ==
LOC: LBO 15:30
PROVIDERS: PCP Nurse Practitioner; Visit Provider Nurse Practitioner Family
DX: E11.9 Type 2 diabetes mellitus without complications (principal); R03.0 Elevated blood-pressure reading, without diagnosis of hypertension; E78.5 Hyperlipidemia, unspecified; E66.9 Obesity, unspecified; Z87.891 Personal history of nicotine dependence
CPT/HCPCS: 80053; 80061; 85027; 83036; 83735

== ENCOUNTER 2021-11-30 18:59 | Outpatient (REF) | payer OTHER, SELFPAY ==
[2021-12-05 23:45] LABS: Cortisol, U 42 mcg/24 h (3.5-45); Urine Volume 1300 mL
== END 2021-11-30 19:00 | disposition home or self-care (01) ==
LOC: LBN 18:59
PROVIDERS: PCP Nurse Practitioner; Visit Provider Internal Medicine Endocrinology, Diabetes & Metabolism
DX: Z68.41 Body mass index [BMI] 40.0-44.9, adult (principal); E66.9 Obesity, unspecified
CPT/HCPCS: 81050; 82530; 83789

== ENCOUNTER 2021-12-02 02:28 | Outpatient (CLI) | payer OTHER, SELFPAY ==
[2021-12-02 09:13] LABS: ALT 43 U/L (14-59); AST 22 U/L (15-37); Albumin 3.7 g/dL (3.4-5.0); Alkaline Phosphatase 79 U/L (46-116); Anion Gap 10.8 mmol/L (3-11); BUN 15 mg/dL (7-18); Bilirubin, Total 0.3 mg/dL (0.2-1.0); CO2 26.2 mmol/L (21.0-32.0); CREATININE 0.9 mg/dL (0.55-1.02); Calcium 9.1 mg/dL (8.5-10.1); Chloride 105 mmol/L (98-107); Glucose 112 mg/dL (74-106); Potassium 4.3 mmol/L (3.5-5.1); Sodium 142 mmol/L (136-145)
== END 2021-12-02 02:29 | disposition home or self-care (01) ==
PROVIDERS: PCP Nurse Practitioner; Visit Provider Nurse Practitioner Family
DX: E11.9 Type 2 diabetes mellitus without complications (principal); R03.0 Elevated blood-pressure reading, without diagnosis of hypertension; G47.33 Obstructive sleep apnea (adult) (pediatric); R06.02 Shortness of breath; Z68.41 Body mass index [BMI] 40.0-44.9, adult; E66.8 Other obesity
CPT/HCPCS: 36415; 80053; 82533

== ENCOUNTER → 2021-12-05 00:51 | Outpatient (CLI) | payer OTHER, SELFPAY ==
--- NOTE | 2021-12-05 09:30 | DI.US_ITS ---
APPROVED REPORT EXAM: Comprehensive 2D, Doppler, and color-flow Echocardiogram Patient Location: Out-Patient Mold Stamper: Susanne Matthew RDCS (AE) Indications: Chronic SOB, Edema Other Information Study Quality: Adequate Conclusion Normal left ventricular wall thickness and chamber size. Estimated ejection fraction is 55 to 60%. Wall motion is normal Normal right ventricular size and systolic function Both atria are normal in size There is no structural or hemodynamically significant valvular disease Normal estimated right ventricular systolic pressure, 23 mmHg Wall motion Left Ventricle The left ventricle is normal size. The left ventricular systolic function is normal. The left ventric ular ejection fraction is within the normal range. There is normal left ventricular wall thickness. T here is normal LV segmental wall motion. There is no ventricular septal defect visualized. LVEF is 57 %. Right Ventricle The right ventricle is normal size. The right ventricular systolic function is normal. The RVSP is 23 .2 mmHg. Atria The left atrium size is normal. The right atrium size is normal. The interatrial septum is intact wit h no evidence for an atrial septal defect. Aortic Valve The aortic valve is normal in structure. Aortic valve is trileaflet. There is no aortic valvular sten osis. No aortic regurgitation is present. Mitral Valve The mitral valve is normal in structure. No evidence of mitral valve stenosis. Trace mitral regurgita tion. Tricuspid Valve The tricuspid valve is normal in structure. There is no tricuspid valve stenosis. Trace tricuspid reg urgitation. Pulmonic Valve The pulmonary valve is normal in structure. There is no pulmonic valvular stenosis. There is no pulmo heri valvular regurgitation. Great Vessels The aortic root is normal in size. The ascending aorta is normal in size. Aortic arch is normal in ca liber. IVC is normal in size and collapses >50% with inspiration. Pericardium There is no pericardial effusion. 2D Dimensions IVSD d PLAX 0.91 cm F: 0.6-1.0 LV Vol A2C d MOD 67.3 mL LVPW d PLAX 0.91 cm F: 0.6 - 1.0 LV Vol A4C d MOD 98.3 mL LVID d PLAX 4.54 cm F: 3.8 - 5.2 LA vol/ BSA A2C s A-L 16.7 mL/m2 LVDs 3.15 cm F: 2.2 - 3.5 LA vol/ BSA A4C s A-L 21.2 mL/m2 Ao Root d 2.50 cm F: 2.7 - 3.3 LA Vol/ BSA Biplane s A-L 19.2 mL/m2 RA Area A4C 12.18 cm2 LA Area A4C s MOD 15.24 cm2 RA Vol/ BSA A4C s A-L 13.9 mL/m2 LA Area A2C s MOD 13.80 cm2 Ao Asc Diam d 2.80 cm F: 2.3 - 3.1 LV EF A4C MOD 57.5 % LV EF Teichholz 57.2 % LV EF A2C MOD 57.5 % LVEF (Mendoza's) 56.51 % F: 54 - 74 LV EF Biplane MOD 56.5 % LV Volume 61.94 mL F: 46 - 106 SV 46.41 mL LV Volume Index 31.60 mL/m2 F: 29 - 61 SV Index 23.59 mL/m2 LV Vol Biplane MOD 82.1 mL FS 29.90 % M-Mode TAPSE 1.97 cm (M/F) >1.7 LV Diastology MV E' medial 0.109 (>0.07 m/s) E/A Ratio 0.9 LV E/e MED 7.75 (<14) MV E Vmax 0.85 (0.4-1.3 m/s) MV E' lateral 0.115 (>0.1 m/s) MV A Vmax 0.95 (0.4-1.3 m/s) LV E/e LAT 7.35 (<14) MV E/A Ratio 0.85 MV E/E' medial 7.77 MV E/E' lateral 7.36 Aortic Valve LVOT Area 2.86 cm2 AoV Area Vmax 2.09 cm2 LVOT Vmax 1.18 m/s AoV Area/ BSA (Vmax) 1.06 cm2/m2 LVOT Mean Norberto. 0.75 m/s TRE Mean Norberto. 1.85 cm2 LVOT Peak Grad 5.5 mmHg TRE Mean Norberto. Index 0.94 cm2/m2 LVOT Mean Grad 2.7 mmHg LVOT VTI 0.250 m LVOT Diam s 1.90 cm AoV Vmax 1.60 m/s Velocity Ratio 0.73 AoV Mean Norberto. 1.16 m/s AoV Peak Grad 10.3 mmHg LVOT SV 71.39 mL AoV Mean Grad 5.8 mmHg AoV VTI 0.316 m AoV Area VTI 2.26 cm2 AoV Area/ BSA (VTI) 1.15 cm/m2 Mitral Valve MV DT 207 (160-240 msec) MV PHT 60 msec MV Area PHT 3.66 cm2 MV VTI 0.208 m MV Area VTI 3.43 (4.0-6.0 cm2) Pulmonary Valve PV Vmax 1.06 (0.5-1.5 m/s) RVOT Peak Gr. 2.23 mmHg PV Peak Grad 4.5 mmHg RVOT Mean Gr. 1.30 mmHg PV Mean Grad 2.9 mmHg RVOT VTI 0.142 m PV VTI 0.264 m RVOT Vmax 0.75 m/s Tricuspid Valve TR Peak Grad 20.2 mmHg TR Vmax 2.25 m/s RA Pressure 3.00 mmHg RVSP (TR) 23.2 mmHg
== END ==
PROVIDERS: PCP Nurse Practitioner; Visit Provider Nurse Practitioner Family
DX: R06.02 Shortness of breath (principal); R60.9 Edema, unspecified
CPT/HCPCS: 93306

== ENCOUNTER 2021-12-05 04:44 | Outpatient (CLI) | payer OTHER, SELFPAY ==
[2021-12-05] MEDS: Albuterol HFA 18 GM 200 PUFF INH IH (08:38)
[2021-12-05] MEDS: Inhaler, Assist Device 1 EACH MC (08:39)
== END 2021-12-05 04:45 | disposition home or self-care (01) ==
LOC: RT 04:45
PROVIDERS: PCP Nurse Practitioner; Visit Provider Nurse Practitioner Family
DX: R06.02 Shortness of breath (principal); Z87.891 Personal history of nicotine dependence; R06.00 Dyspnea, unspecified; R07.89 Other chest pain; R94.2 Abnormal results of pulmonary function studies
CPT/HCPCS: 94060; 94726; 94729

== ENCOUNTER 2021-12-26 09:11 | Outpatient (REF) | payer OTHER, SELFPAY ==
[2021-12-26 18:05] LABS: COMMENT (LAB VIEW ONLY) 237.57 mg/dL; Microalb ug/mg Crea 11.1 ug/mg Cr
== END 2021-12-26 09:12 | disposition home or self-care (01) ==
LOC: NCHCN 09:11
PROVIDERS: PCP Nurse Practitioner; Visit Provider Nurse Practitioner Family
DX: E11.9 Type 2 diabetes mellitus without complications (principal); R06.02 Shortness of breath; E66.8 Other obesity
CPT/HCPCS: 82043; 82570

== ENCOUNTER 2022-05-30 13:56 | Outpatient (CLI) | payer OTHER, SELFPAY ==
[2022-05-30 12:16] LABS: HCT 39.8 % (36.0-46.0); MCHC 32.7 % (32.0-36.0); MCV 86 fL (80-95); MPV 11.5 fL (8.0-11.0); Platelet Count 143 10^3/uL (130-400); RBC 4.64 10^6/uL (3.93-5.22); RDW 14.6 % (11.7-14.6); RDW-SD 46.4 fL; WBC 13.22 10^3/uL (4.4-10.8)
[2022-05-30 12:31] LABS: ALT 104 U/L (14-59); AST 72 U/L (15-37); Alkaline Phosphatase 64 U/L (46-116); Amylase 40 U/L (25-115); BUN 19 mg/dL (7-18); Bilirubin, Total 0.5 mg/dL (0.2-1.0); CREATININE 1.3 mg/dL (0.55-1.02); Calcium 8.3 mg/dL (8.5-10.1); Chloride 100 mmol/L (98-107); Estimated GFR 45.63 (mL/min/1.73m2); Glucose 122 mg/dL (74-106); Lipase 117 U/L (73-393); Potassium 3.6 mmol/L (3.5-5.1); Sodium 134 mmol/L (136-145); Total Protein 6.6 g/dL (6.4-8.2)
[2022-05-30 12:35] LABS: Absolute Lymphocyte Count 6.61 10^3/uL (1.2-3.4); Absolute Neutrophil Count 5.55 10^3/uL (1.2-6.7); Diff Comment Manual Differential; RBC Morphology Normal
[2022-05-30 12:36] LABS: Absolute Basophil Count 0.13 10^3/uL (0.0-0.2); Absolute Monocyte Count 0.53 10^3/uL (0.1-0.8)
== END 2022-05-30 13:57 | disposition home or self-care (01) ==
LOC: LBO 13:57
PROVIDERS: PCP Nurse Practitioner; Visit Provider Nurse Practitioner Family
DX: R10.12 Left upper quadrant pain (principal)
CPT/HCPCS: 36415; 80053; 83690; 82150; 85025

== ENCOUNTER → 2022-05-30 14:51 | Outpatient (CLI) | payer OTHER, SELFPAY ==
--- NOTE | 2022-05-30 | DI.CT_ITS ---
Exam(s) CT ABDOMEN PELVIS W EXAM: CT ABDOMEN PELVIS W CLINICAL HISTORY: ABD BLOATING R14.0 LUQ PAIN R10.12 TECHNIQUE: Imaging Protocol: Axial computed tomography images with coronal and sagittal reformatted images were created and reviewed CONTRAST MATERIAL: Intravenous: Omnipaque 350 Contrast volume:100 mL Oral: Yes COMPARISON: No exams were available for comparison FINDINGS: ABDOMEN: Lung Bases: There is a small hiatal hernia. Liver: The liver is of a decreased density suggesting fatty infiltration. The liver measures 18 cm l valencia. There are 2 cysts within the liver the largest is in the right lobe and measures 2 cm. No susp icious hepatic masses are seen. Portal, Superior Mesenteric, and Splenic Veins: Unremarkable. Gallbladder and Biliary Tract: Status post cholecystectomy. No significant biliary ductal dilatation . Pancreas: Normal density, no abnormal calcifications or inflammatory process. Spleen: Normal. Adrenals: No masses seen. Kidneys: Normal size, contour and axis. No radiodense stones or obstructive uropathy. Small bilateral renal cysts. No follow-up is recommended. Abdominal Aorta: Abdominal portion non-dilated. Atherosclerosis is present. Bowel: No obstruction or bowel wall thickening. Appendix is unremarkable. There are few diverticula i n the sigmoid colon, but no evidence of acute diverticulitis. Peritoneal Cavity: No ascites, collection or mesenteric inflammatory response. No free air. Lymph Nodes: Within normal limits. Bones: Within normal limits for the patient's age. Soft Tissues: Unremarkable. PELVIS: Bladder: Symmetric distention, no gross wall thickening. Reproductive Organs: Unremarkable as visualized. Lymph Nodes: Within normal limits. Bones: Within normal limits for the patient's age. IMPRESSION: 1. No acute abdominal or pelvic process. 2. Hepatomegaly and hepatic steatosis. 3. Colonic diverticulosis but no evidence of acute diverticulitis. RADIATION DOSE DELIVERED: 1,208.31mGy.cm Total DLP DATA REPOSITORY: All CT scans at this facility are submitted to the National Radiology Data Registry (NRDR) Dose Index Registry (DIR) with the [employer] (A[employer]). RADIATION OPTIMIZATION: All CT scans at this facility use at least one of these dose optimization te chniques: automated exposure control; mA and/or kV adjustment per patient size (includes targeted exa ms where dose is matched to clinical indication); or iterative reconstruction.
[2022-05-30] MEDS: Gastrografin 120 ML BTL PO (12:55)
[2022-05-30] MEDS: Omnipaque 350 MG/ML 100 ML BTL IJ (14:55)
[2022-05-30] MEDS: Normal Saline Flush 10 ML SYR IVP (14:56)
== END ==
PROVIDERS: PCP Nurse Practitioner; Visit Provider Nurse Practitioner Family
DX: K76.0 Fatty (change of) liver, not elsewhere classified (principal); R16.0 Hepatomegaly, not elsewhere classified; K57.30 Diverticulosis of large intestine without perforation or abscess without bleeding
CPT/HCPCS: 74177; J3490

== ENCOUNTER 2022-05-30 15:02 | Emergency (ER) | payer OTHER, SELFPAY ==
[2022-05-30 15:14] VITALS: BP 109/68; PULSE 117; O2SAT 95
--- NOTE | 2022-05-30 15:30 | DI.US_ITS ---
Exam(s) US ABDOMEN EXAM: US ABDOMEN CLINICAL HISTORY: nausea, elevated liver enzynes TECHNIQUE: Ultrasound abdomen performed using standard protocol. COMPARISON: No exams were available for comparison FINDINGS: ABDOMINAL AORTA AND IVC: Visualized portions normal caliber. PANCREAS: Normal where visualized. LIVER: There is diffuse increased echogenicity of the liver consistent with fatty infiltration. The liver measures 17.4 cm long. Hepatopedal flow in the Portal Vein. There are 2 hepatic cysts seen whi ch correspond to the findings on the CT from earlier in the day. GALLBLADDER:Status post cholecystectomy. BILIARY SYSTEM: Common bile duct measures 9 mm. This likely reflects the post cholecystectomy state. CORONEL'S SIGN: Negative. KIDNEYS: Kidneys are symmetric in size. No evidence of renal calculi. No evidence of hydronephrosis. No renal mass or cyst identified. SPLEEN: Not enlarged. ASCITES: None seen. IMPRESSION: 1. Hepatomegaly and hepatic steatosis. 2. Status post cholecystectomy. 3. Results of this exam have been verbally communicated with provider. DATA REPOSITORY:
--- NOTE | 2022-05-30 15:36 | ED.GENADUL_ITS ---
Discharge Plan Disposition Patient Disposition: HOME Condition: Improving Discharge Details Clinical Impression: Nausea, Abdominal pain Primary Care Provider: Chikis Padron ED Provider: Jonathan Martin Home Meds and New Rx's Prescriptions: Continued Ozempic 0.25 mg or 0.5 mg(2 mg/1.5 mL) pen injector 0.5 mg subcut QWEEK diclofenac sodium 1 % gel 2 g topical QID Rx Instructions: apply to single elbow, wrist or hand; for hand includes palm/fingers/back of hand zolpidem [Ambien] 5 mg tablet 5 mg PO QHS PRN albuterol sulfate [Proventil HFA] 90 mcg/actuation HFA aerosol inhaler 2 puff inhalation Q6H PRN multivitamin [Daily Value] 1 EACH tablet 1 ea PO DAILY Label Comments: not recently omeprazole 20 MG capsule,delayed release(DR/EC) 20 mg PO DAILY PRN PRNQty: 30 ascorbic acid (vitamin C) [Vitamin C] 500 MG tablet 500 mg PO DAILY Label Comments: not for last week cholecalciferol (vitamin D3) [Vitamin D3] 2,000 UNIT capsule 2,000 unit PO PRN Label Comments: not taking vitamin E (dl, acetate) 400 UNIT capsule 400 unit PO DAILY Label Comments: not taking vitamin B complex 1 EACH tablet 1 tab PO QAM Label Comments: hasnt taken for a week No Action (DME) Massage Therapy See Rx Instructions .Route .MEDSUPPLY Qty: 1 0RF Rx Instructions: Please provide massage therapy for lumbago and s/p R knee partial medial menisectomy meloxicam 15 mg tablet 7.5 mg PO DAILY (DME) blood-glucose meter [FreeStyle Lite Meter] Kit See Rx Instructions .ROUTE Rx Instructions: As directed (DME) lancets [FreeStyle Lancets] 28 gauge misc See Rx Instructions .ROUTE Rx Instructions: As directed (DME) Aerochamber MV Spacer See Rx Instructions .ROUTE Rx Instructions: As directed (DME) FreeStyle Lite Strips Strip See Rx Instructions .ROUTE Rx Instructions: As directed acetaminophen 500 mg tablet 500 mg PO Q6H PRN PRN (Reason: pain) Qty: 40 3RF Discharge Instructions Instructions: Acute Nausea and Vomiting (ED), Abdominal Pain (ED) Additional Instructions: May use the provided Zofran as needed for nausea. [place]/liquid diet for 24 hours and then may slowly advance your diet. We will ask our care managers to arrange a follow-up for you for recheck in clinic. Your liver enzymes were slightly elevated today and will need to be rechecked in follow-up. Minimize Tylenol, no more than once daily. May use Benadryl 25 to 50 mg at bedtime as a decongestant. 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 She was seen in the urgent care earlier Sunday and had laboratory work and a CT scan of her abdomen ordered. She presents after having nausea and emesis x1 in [address] scanner. Patient states to me that she had 7 to 10 days days of poor day p.o. intake, generalized nausea and the left sides. She relates this will to being given an incorrect dose of her semaglutide x2 doses over the past 2 weeks.. She arrives ER slightly tachycardic and nauseated. I reviewed the previous blood work obtained today: Blood cell count 13, hematocrit 39, platelets 143. Sodium 134, K13.6, bicarb 100, bicarb 525, BUN 19, creatinine 1.3. Glucose 122. AST 72, ALT 104. Total bili 0.5.. Lipase 117, amylase 40. Today's outpatient CT scan, IMPRESSION: 1. No acute abdominal or pelvic process. 2. Hepatomegaly and hepatic steatosis. 3. Colonic diverticulosis but no evidence of acute diverticulitis. A abdominal ultrasound was performed with no evidence of acute findings. See the formal report. I have added an acute hepatitis panel. Would consider hepatitis A or E virus and acute infection. Patient improved with fluids and Zofran. She request discharge to home. We will arrange follow-up for her in clinic for recheck. Will offer Zofran for home. She did have evidence of mild left ear effusion and will offer Benadryl at bedtime. She is stable and improving. Lab Data Lab results reviewed: Yes I reviewed the patient's lab results. HPI General Date/Time Provider Initiated Documentation: 05/30/22 15:17 . Related Data Home Medications Medication Instructions Recorded Confirmed ascorbic acid (vitamin C) 500 mg 500 mg PO DAILY 09/16/13 12/12/21 tablet (Vitamin C) cholecalciferol (vitamin D3) 50 2,000 unit PO PRN 09/16/13 12/12/21 mcg (2,000 unit) capsule (Vitamin D3) vitamin E (dl, acetate) 180 mg 400 unit PO DAILY 09/16/13 12/12/21 (400 unit) capsule vitamin B complex 1 tab PO QAM 12/05/14 12/12/21 multivitamin (Daily Value tablet) 1 ea PO DAILY 09/15/15 12/12/21 omeprazole 20 mg capsule,delayed 20 mg PO DAILY PRN PRN #30 tabs 10/11/16 12/12/21 release acetaminophen 500 mg tablet 500 mg PO Q6H PRN PRN pain #40 tabs 11/24/20 12/12/21 Massage Therapy #1 ea 01/03/21 12/12/21 albuterol sulfate 90 mcg/actuation 2 puff inhalation Q6H PRN 12/12/21 aerosol inhaler (Proventil HFA) blood sugar diagnostic (FreeStyle 12/12/21 Lite Strips) blood-glucose meter (FreeStyle 12/12/21 Lite Meter kit) diclofenac sodium 1 % topical gel 2 g topical QID 12/12/21 inhalational spacing device 12/12/21 (Aerochamber MV spacer) lancets 28 gauge (FreeStyle 12/12/21 Lancets) meloxicam 15 mg tablet 7.5 mg PO DAILY 12/12/21 semaglutide 0.25 mg or 0.5 mg (2 0.5 mg subcut QWEEK 12/12/21 mg/1.5 mL) subcutaneous pen injector (Ozempic) zolpidem 5 mg tablet (Ambien) 5 mg PO QHS PRN 12/12/21 Previous Rx's Medication Instructions Recorded acetaminophen 500 mg tablet 500 mg PO Q6H PRN PRN pain #40 tabs 11/24/20 Massage Therapy #1 ea 01/03/21 Allergies Allergy/AdvReac Type Severity Reaction Status Date / Time Latex, Natural Rubber AdvReac Intermediate flu-like Unverified 05/30/22 15:17 symptoms General Stated Complaint: Abd Prob KENDALL: 3 PFSH All Active Problems (Updated 05/30/22 @ 16:32 by Jonathan Martin MD) Nausea (Acute) Abdominal pain (Acute) Complex tear of medial meniscus of right knee (Acute) s/p arthroscopic partial medial menisectomy 11/24/2020 Encounter for screening for other viral diseases (Acute) Internal derangement of right knee (Acute) Medical History (Updated 05/30/22 @ 16:32 by Jonathan Martin MD) Back injury Hx of toxoplasmosis Surgical History (Updated 06/13/21 @ 12:42 by LUDY Alaniz) Cholecystectomy History of parotid gland removal Left Tubal Ligation, Laparoscopic Family History Mother Heart murmur Myocardial infarction 67 Father Prostate cancer Maternal Aunt Breast cancer Maternal Cousin Breast cancer Sister Heart murmur Social History Smoking/Tobacco Use Status: Former Tobacco Use Quit Date: 09/03/10 Smoking risk assessment performed?: Yes Alcohol Intake: current Alcohol Intake frequency: holidays/special occasions only Drug use: Never Substance use type: does not use Current gender identity: female Do you feel safe at home: Yes Course Vital Signs Vital signs: Vital Signs Pulse 117 H 05/30/22 15:14 Blood Pressure 109/68 05/30/22 15:14 Pulse Oximetry 95 05/30/22 15:14 Pulse 117 H 05/30/22 15:14 Respiratory Effort Non-Labored 05/30/22 15:18 Blood Pressure 109/68 05/30/22 15:14 Blood Pressure Position Sitting 05/30/22 15:14 Pulse Oximetry 95 05/30/22 15:14 Oxygen Delivery Method Room Air 05/30/22 15:14 Oxygen Flow Rate 0 05/30/22 15:14
[2022-05-30] MEDS: Normal Saline 1,000 ML 1000 ML IV (16:39)
[2022-05-30] MEDS: Ondansetron 4 MG/2 ML VIAL IVP (16:39)
--- NOTE | 2022-05-30 17:05 | NUR.NOTE ---
Nursing Note: Referral faxed to [facility] for elevated liver enzymes in 1 week
[2022-05-30] MEDS: Ondansetron O.D.T. 4 MG TABEF, 3 TABS/BTL PO (17:43)
[2022-05-30] MEDS: diphenhydrAMINE 25 MG CAP 50 MG PO (17:43)
[2022-06-01 09:54] LABS: Hepatitis A Antibody IgM Negative (Negative); Hepatitis B Core Antibody Negative (Negative); Hepatitis B surface Ag Negative (Negative); Hepatitis C Ab w Rflx HCV PCR Negative (Negative)
== END 2022-05-30 17:44 | disposition home or self-care (01) ==
PROVIDERS: Emergency Provider Emergency Medicine; PCP Nurse Practitioner
DX: R11.2 Nausea with vomiting, unspecified (principal); R10.9 Unspecified abdominal pain; R00.0 Tachycardia, unspecified; R79.89 Other specified abnormal findings of blood chemistry
CPT/HCPCS: 86704; 86709; 86803; 87340; 96361; 96374; 99284; 76700; 99281; J2405

== ENCOUNTER 2022-06-26 14:06 | Outpatient (REF) | payer OTHER, SELFPAY ==
[2022-06-26 15:03] LABS: HCT 39.2 % (36.0-46.0); HGB 12.4 g/dL (11.2-15.7); MCH 28.1 pg (27.0-33.0); MCHC 31.6 % (32.0-36.0); MCV 89 fL (80-95); MPV 12.4 fL (8.0-11.0); Platelet Count 236 10^3/uL (130-400); RBC 4.41 10^6/uL (3.93-5.22); RDW 15.9 % (11.7-14.6); RDW-SD 51.7 fL; WBC 8.19 10^3/uL (4.4-10.8)
[2022-06-26 15:56] LABS: ALT 93 U/L (14-59); AST 51 U/L (15-37); Albumin 3.7 g/dL (3.4-5.0); Alkaline Phosphatase 65 U/L (46-116); Anion Gap 9.3 mmol/L (3-11); BUN 16 mg/dL (7-18); Bilirubin, Total 0.5 mg/dL (0.2-1.0); CO2 24.7 mmol/L (21.0-32.0); CREATININE 0.9 mg/dL (0.55-1.02); Calcium 9.2 mg/dL (8.5-10.1); Chloride 106 mmol/L (98-107); Estimated GFR 70.95 (mL/min/1.73m2); Glucose 104 mg/dL (74-106); Sodium 140 mmol/L (136-145); Total Protein 7.7 g/dL (6.4-8.2)
== END 2022-06-26 14:07 | disposition home or self-care (01) ==
LOC: NCHCN 14:06
PROVIDERS: PCP Nurse Practitioner Family; Visit Provider Nurse Practitioner Family
DX: E11.9 Type 2 diabetes mellitus without complications (principal); R79.89 Other specified abnormal findings of blood chemistry; R16.0 Hepatomegaly, not elsewhere classified
CPT/HCPCS: 80053; 85027

== ENCOUNTER 2022-09-25 19:33 | Outpatient (REF) | payer OTHER, SELFPAY ==
[2022-09-25 18:41] LABS: Abs Immature Grans 0.04 10^3/uL (0.0-0.06); Absolute Basophil Count 0.07 10^3/uL (0.0-0.2); Absolute Eosinophil Count 0.05 10^3/uL (0.0-0.7); Absolute Monocyte Count 1.52 10^3/uL (0.1-0.8); Basophils % 0.6; Eosinophils % 0.4; HCT 43.2 % (36.0-46.0); HGB 13.7 g/dL (11.2-15.7); Immature Grans % 0.3; Lymphocytes % 42.3; MCH 28.2 pg (27.0-33.0); MCHC 31.7 % (32.0-36.0); MCV 89 fL (80-95); MPV 11.9 fL (8.0-11.0); Monocytes % 12.7; Neutrophils % 43.7; Platelet Count 236 10^3/uL (130-400); RBC 4.86 10^6/uL (3.93-5.22); RDW 14.1 % (11.7-14.6); RDW-SD 45.4 fL
[2022-09-25 18:42] LABS: Absolute Lymphocyte Count 5.08 10^3/uL (1.2-3.4); Absolute Neutrophil Count 5.24 10^3/uL (1.2-6.7)
[2022-09-25 19:13] LABS: Diff Comment Agrees w/ Instrument; RBC Morphology Normal
[2022-09-25 20:20] LABS: ALT 46 U/L (14-59); AST 45 U/L (15-37); Albumin 3.6 g/dL (3.4-5.0); Alkaline Phosphatase 68 U/L (46-116); Anion Gap 14.5 mmol/L (3-11); BUN 20 mg/dL (7-18); Bilirubin, Total 0.3 mg/dL (0.2-1.0); CO2 20.5 mmol/L (21.0-32.0); CREATININE 0.9 mg/dL (0.55-1.02); Calcium 9.3 mg/dL (8.5-10.1); Chloride 104 mmol/L (98-107); Estimated GFR 70.95 (mL/min/1.73m2); Glucose 105 mg/dL (74-106); Potassium 4.3 mmol/L (3.5-5.1); Sodium 139 mmol/L (136-145); Total Protein 7.8 g/dL (6.4-8.2)
== END 2022-09-25 19:34 | disposition home or self-care (01) ==
LOC: NCHCN 19:33
PROVIDERS: PCP Nurse Practitioner Family; Visit Provider Nurse Practitioner Family
DX: R05.1 Acute cough (principal); E11.9 Type 2 diabetes mellitus without complications; R16.0 Hepatomegaly, not elsewhere classified; R79.89 Other specified abnormal findings of blood chemistry
CPT/HCPCS: 80053; 85025

== ENCOUNTER 2023-02-26 12:28 | Outpatient (REF) | payer OTHER, SELFPAY ==
[2023-02-26 16:26] LABS: ALT 45 U/L (14-59); AST 29 U/L (15-37); Albumin 3.9 g/dL (3.4-5.0); Alkaline Phosphatase 76 U/L (46-116); Anion Gap 10.7 mmol/L (3-11); BUN 16 mg/dL (7-18); Bilirubin, Total 0.4 mg/dL (0.2-1.0); CO2 27.3 mmol/L (21.0-32.0); CREATININE 0.8 mg/dL (0.55-1.02); Calcium 9.1 mg/dL (8.5-10.1); Calculated LDL 129 mg/dL (<100); Chloride 104 mmol/L (98-107); Cholesterol 190 mg/dL (<200); Estimated GFR 81.21 (mL/min/1.73m2); Glucose 104 mg/dL (74-106); HDL Cholesterol 45 mg/dL (40-60); Potassium 4.4 mmol/L (3.5-5.1); Sodium 142 mmol/L (136-145); TSH (W/Ref FT4) 0.72 uIU/mL (0.36-3.74); Total Protein 7.5 g/dL (6.4-8.2); Triglyceride 84 mg/dL (<150)
== END 2023-02-26 12:29 | disposition home or self-care (01) ==
LOC: NCHCN 12:28
PROVIDERS: PCP Nurse Practitioner Family; Visit Provider Nurse Practitioner Family
DX: E78.5 Hyperlipidemia, unspecified (principal); E11.9 Type 2 diabetes mellitus without complications; F41.8 Other specified anxiety disorders; R79.89 Other specified abnormal findings of blood chemistry
CPT/HCPCS: 80053; 80061; 84443

== ENCOUNTER 2023-08-15 22:03 | Outpatient (REF) | payer OTHER, SELFPAY ==
[2023-08-15 20:32] LABS: Hemoglobin A1C 6.3 % (<5.7)
== END 2023-08-15 22:04 | disposition home or self-care (01) ==
LOC: NCHCN 22:03
PROVIDERS: PCP Nurse Practitioner Family; Visit Provider Nurse Practitioner Family
DX: E11.9 Type 2 diabetes mellitus without complications (principal)
CPT/HCPCS: 83036

== ENCOUNTER 2024-04-08 18:28 | Outpatient (REF) | payer OTHER, SELFPAY ==
[2024-04-08 21:32] LABS: ALT 48 U/L (14-59); AST 34 U/L (15-37); Albumin 3.6 g/dL (3.4-5.0); Alkaline Phosphatase 76 U/L (46-116); Anion Gap 10.4 mmol/L (3-11); BUN 18 mg/dL (7-18); Bilirubin, Total 0.23 mg/dL (0.2-1.0); CO2 24.6 mmol/L (21.0-32.0); CREATININE 0.9 mg/dL (0.55-1.02); Calcium 8.7 mg/dL (8.5-10.1); Calculated LDL 127 mg/dL (<100); Chloride 105 mmol/L (98-107); Cholesterol 193 mg/dL (<200); Estimated GFR 70.07 (mL/min/1.73m2); Glucose 119 mg/dL (74-106); HDL Cholesterol 42 mg/dL (40-60); Potassium 4.2 mmol/L (3.5-5.1); Sodium 140 mmol/L (136-145); Total Protein 7.4 g/dL (6.4-8.2); Triglyceride 121 mg/dL (<150)
== END 2024-04-08 18:29 | disposition home or self-care (01) ==
LOC: NCHCN 18:28
PROVIDERS: PCP Nurse Practitioner Family; Visit Provider Nurse Practitioner Family
DX: E11.9 Type 2 diabetes mellitus without complications (principal); E78.5 Hyperlipidemia, unspecified
CPT/HCPCS: 80053; 80061

== ENCOUNTER 2024-06-25 12:09 | Outpatient (CLI) | payer OTHER, SELFPAY ==
--- NOTE | 2024-06-25 11:45 | DI.MRI_ITS ---
Exam(s) MR CERVICAL SPINE WO EXAM: MR CERVICAL SPINE WO CLINICAL HISTORY: UE numbness with change of neck position R20.0 ANESTHESIA OF SKIN, BILAT TECHNIQUE: Multiplanar multisequence MRI of the cervical spine was performed without intravenous con trast. COMPARISON: MR MRI - CERVICAL SPINE WO CONT from 08/20/2009 FINDINGS: BONES: Vertebral body heights are maintained. Intervertebral disc spaces are normal. Straightening of the normal cervical lordosis. Degenerative endplate signal changes are present. CERVICAL CORD: Craniovertebral junction is unremarkable. The cervical cord is normal size and signal intensity. SOFT TISSUES: Unremarkable. C2-3: No disc herniation or bulge is identified. No significant central spinal canal or neural forami nal stenosis. C3-4: No disc herniation or bulge is identified. There is prominence of the left uncovertebral joint causing moderate left neural foraminal stenosis. No significant central spinal canal or right neural foraminal stenosis is present. C4-5: There is prominence of the disc at this level. No significant central spinal canal stenosis is seen. No significant central spinal canal or neural foraminal stenosis C5-6: There is prominence of the osteophyte disc complex with narrowing of the AP diameter of the desiree tral spinal canal to 7 mm. There is some and dentate vera of the anterior spinal cord. There are de generative changes seen at the uncovertebral joints bilaterally causing mild bilateral neural foramin al stenosis. C6-7: No disc herniation or bulge is identified. No significant central spinal canal or neural forami nal stenosis C7-T1: No disc herniation or bulge is identified. No significant central spinal canal or neural tamiko inal stenosis IMPRESSION: Multilevel degenerative changes in the cervical spine. The findings cause moderate left neural tamiko inal stenosis at C3-C4 and bilateral neural foraminal stenosis and central spinal canal stenosis at C 5-C6. DATA REPOSITORY:
== END 2024-06-25 12:29 ==
LOC: DI 12:12
PROVIDERS: PCP Nurse Practitioner Family; Visit Provider Nurse Practitioner Family
DX: M50.321 Other cervical disc degeneration at C4-C5 level (principal)
CPT/HCPCS: 72141

== ENCOUNTER 2025-04-06 15:36 | Outpatient (REF) | payer MEDICARE, SELFPAY ==
[2025-04-06 16:28] LABS: Hemoglobin A1C 6.8 % (<5.7)
[2025-04-06 17:03] LABS: ALT 40 U/L (14-59); AST 36 U/L (15-37); Albumin 3.6 g/dL (3.4-5.0); Alkaline Phosphatase 78 U/L (46-116); Anion Gap 9.1 mmol/L (3-11); BUN 12 mg/dL (7-18); Bilirubin, Total 0.4 mg/dL (0.2-1.0); CO2 26.9 mmol/L (21.0-32.0); Calcium 9.5 mg/dL (8.5-10.1); Calculated LDL 147 mg/dL (<100); Chloride 104 mmol/L (98-107); Cholesterol 208 mg/dL (<200); Estimated GFR 69.64 (mL/min/1.73m2); Glucose 125 mg/dL (74-106); HDL Cholesterol 42 mg/dL (>or=50); Potassium 4.2 mmol/L (3.5-5.1); Sodium 140 mmol/L (136-145); Total Protein 7.8 g/dL (6.4-8.2); Triglyceride 95 mg/dL (<150)
== END 2025-04-06 15:37 | disposition home or self-care (01) ==
LOC: NCHCN 15:36
PROVIDERS: PCP Nurse Practitioner Family; Visit Provider Nurse Practitioner Family
DX: E78.5 Hyperlipidemia, unspecified (principal); E11.9 Type 2 diabetes mellitus without complications
CPT/HCPCS: 80053; 80061; 83036